=== PATIENT | male | born 1960 | race Caucasian/White ===

== ENCOUNTER 2020-04-27 19:15 | Observation (INO) | payer BC, SELFPAY ==
[2020-04-27] VITALS (21 sets, daily range): BP systolic 105–179; BP diastolic 74–91; PULSE 56–70; RESP 16–22; TEMP 37.1; O2SAT 94–99
--- NOTE | ~2020-04-27 | XR_ITS ---
XR chest 2V DATE: 04/27/2020 19:48 INDICATION: Generalized chest pain. Shortness of breath. Cough. Status post CABG. History of stents. TECHNIQUE: PA and lateral views COMPARISON: 10/23/2010 portable AP chest FINDINGS: Status post sternotomy/CABG. Normal heart size. No hilar or mediastinal enlargement. No pulmonary infiltrate or consolidation, pleural effusion or pulmonary vascular congestion or pneumo thorax. Degenerative spurring of the thoracic spine. IMPRESSION: Status post sternotomy; no active cardiopulmonary disease Reviewed, dictated and finalized at location A.
--- NOTE | 2020-04-27 19:19 | ECG_ITS ---
Measurements Intervals [employer] Rate: 64 P: 53 SD: 181 QRS: -9 QRSD: 95 T: 50 QT: 397 QTc: 412 Interpretive Statements SINUS RHYTHM BORDERLINE ST ABNORMALITY- HIGH LATERAL LEADS BASELINE ARTIFACT- I, II, III, AVR, AVL, AVF, V4-V5 BORDERLINE ECG Electronically Signed On 04-28-2020 7:49:54 CDT by Warner Crocker D.O.
[2020-04-27 19:36] LABS: Basophils Percent Auto 0.3 % (0.2-1.2); Eosinophils Absolute Auto 0.2 K/mm3 (0-0.3); Eosinophils Percent Auto 2.6 % (0-4.4); Hematocrit 44.3 % (42.0-52.0); Hemoglobin 14.7 g/dL (14.0-18.0); Immature Granulocyte Absolute 0.05 K/mm3 (0.00-0.031); Immature Granulocyte Percent A 0.6 % (0-0.5); Lymphocytes Absolute Auto 1.81 K/mm3 (0.9-3.2); Lymphocytes Percent Auto 20.4 % (18.3-44.2); Mean Corpuscular HGB Conc 33.2 g/dl (32-36); Mean Corpuscular Hemoglobin 31.3 pg (26-34); Mean Corpuscular Volume 94.3 fl (80-100); Monocytes Absolute Auto 0.7 K/mm3 (0.1-0.6); Monocytes Percent Auto 7.6 % (2.6-8.5); Neutrophils Absolute Auto 6.1 K/mm3 (1.3-6.7); Neutrophils Percent Auto 68.5 % (45.5-73.1); Platelet Count Result 220 k/mm3 (150-375); Red Cell Distribution Width 12.8 % (11.5-14.5); White Blood Count 8.9 K/mm3 (4.5-10.0)
[2020-04-27 19:46] LABS: Anion Gap 8 mmol/L (8-16); Blood Urea Nitrogen 17 mg/dL (9-20); Calcium 8.8 mg/dL (8.4-10.2); Carbon Dioxide 26 mmol/L (22-30); Chloride 104 mmol/L (98-107); Estimated CRCL calculation 103 ml/min; Estimated Glomerular Filt Rate > 60; Glucose 159 mg/dL (75-110); Potassium 4.1 mmol/L (3.4-5.0); Sodium 138 mmol/L (137-145)
[2020-04-27 19:58] LABS: Troponin I 0.026 ng/mL (0.000-0.034)
--- NOTE | 2020-04-27 20:03 | ED.CHESTPAIN ---
HPI - Chest Pain General Chief Complaint: Chest Pain Stated Complaint: Chest Pain Time Seen by Provider: 04/27/20 19:19 History of Present Illness HPI narrative: Patient is a 59-year-old male who presents the ER with chest pain. Patient has a significant coronary history. He had bypass in 2017. He has had multiple stents since then. Was seen cardiology in [facility] but has had his care transferred down to [facility]. He supposed to have a cath on 05/13/2020. Patient reports over the last 5 days he has had increased chest pain with any sort of exertion, radiates to neck. He basically can only walk 10 to 15 feet before he has central chest pressure. He has to sit down for the discomfort to go away. He is also had an issue where he had spontaneous chest pain and middle of the night. He has been started on isosorbide over the last 4 days which has only slightly helped. No diaphoresis/n/v/soa. Related Data Home Medications Medication Instructions Recorded Confirmed alprazolam 0.5 mg PO TID PRN 04/27/20 04/27/20 aspirin 81 mg PO DAILY 04/27/20 04/27/20 atorvastatin 80 mg PO DAILY 04/27/20 04/27/20 isosorbide mononitrate 30 mg PO DAILY 04/27/20 04/27/20 metformin 1,000 mg PO BID 04/27/20 04/27/20 metoprolol tartrate 25 mg PO BID 04/27/20 04/27/20 multivit with min-folic acid 1 PO DAILY 04/27/20 [Adult One Daily Multivitamin] omeprazole 20 mg PO DAILY 04/27/20 04/27/20 rivaroxaban [Xarelto] 2.5 mg PO BID 04/27/20 04/27/20 ticagrelor [Brilinta] 90 mg PO BID 04/27/20 04/27/20 Allergies Allergy/AdvReac Type Severity Reaction Status Date / Time No Known Allergies Allergy Verified 04/27/20 19:37 Review of Systems Review of Systems: All systems reviewed & are unremarkable except as noted in HPI and below Constitutional: Constitutional: Denies fatigue, Denies fever(s) and Denies weakness ENT: Denies nasal congestion and Denies sore throat Cardiovascular: Cardiovascular: Reports chest pain and Reports radiating jaw, neck or arm pain Respiratory: Respiratory: Denies cough, Denies dyspnea and Denies wheezing Gastrointestinal: Gastrointestinal: Denies nausea and Denies vomiting PMFSH Past Medical History Medical History (Updated 04/28/20 @ 07:32 by Venancio Howell MD) Coronary artery disease Diabetes type 2, controlled Hyperlipidemia Hypertension Surgical History Surgical History (Updated 04/27/20 @ 20:08 by Venancio Howell MD) History of percutaneous coronary intervention Hx of CABG Hx of fusion of cervical spine Social History Social History (Updated 04/27/20 @ 20:08 by Venancio Howell MD) Smoking status: Current every day smoker Tobacco type: cigarettes Exam Narrative: Exam Narrative: GENERAL: Well-appearing, obese, and in no acute distress. HEAD: Normocephalic, atraumatic. ENT: Mucous membranes moist. CHEST: Clear to auscultation. No respiratory distress. HEART: Regular rate and rhythm. Normal peripheral pulses. ABDOMEN: Soft, nontender, nondistended. EXTREMITIES: Normal range of motion. 1+ edema. SKIN: Warm, dry, no rash. NEURO: Alert and oriented x3. Course Course Emergency Course: Accepted by Dr. Garner. Awaiting bed. Reevaluation(s) Reevaluation #1: Patient in the ER for 35 hours now. Admit to the hospitalist service for observation as we are still continuing to wait for a bed. I have also touch base with Dr. Tristan with cardiology who will stop in to evaluate the patient. Date: 04/29/20 Time: 06:44 Vital Signs Vital signs: Vital Signs Temperature 98.7 F 04/27/20 19:21 Pulse Rate 62 04/27/20 19:21 Respiratory Rate 22 H 04/27/20 19:21 Blood Pressure 179/88 H 04/27/20 19:21 Pulse Oximetry 98 04/27/20 19:21 Temperature 97.9 F 04/29/20 05:40 Pulse Rate 62 04/29/20 05:41 Respiratory Rate 16 04/29/20 05:40 Blood Pressure 177/85 H 04/29/20 05:40 Pulse Oximetry 96 04/29/20 05:40 MDM - Chest Pain Lab Data Result diagrams:
[2020-04-27 20:08] LABS: INR 1.1; Prothrombin Time 14.3 Seconds (11.1-14.7)
[2020-04-27 20:09] LABS: Partial Thromboplastin Time 27.5 SECONDS (22.3-36.8)
[2020-04-27 23:02] LABS: Troponin I 0.027 ng/mL (0.000-0.034)
[2020-04-28] VITALS (113 sets, daily range): BP systolic 130–187; BP diastolic 67–94; PULSE 53–84; RESP 9–22; O2SAT 93–100
--- NOTE | 2020-04-28 01:12 | PC.NURSE ---
PT STATES TAKES XANAX AT HOME FOR SLEEP AND REQUESTING MED. DR FERMIN NOTIFIED. VRBO RECEIVED. WILL CONTINUE TO MONITOR.
[2020-04-28] MEDS: ALPRAZolam 0.25 MG TABLET 0.5 MG PO (01:18)
--- NOTE | 2020-04-28 01:41 | PC.NURSE ---
CALL RECEIVED FROM [facility]. TRIAGE INFORMATION GIVEN. STATES WILL CALL WHEN BED AVAILABLE
[2020-04-28 02:16] LABS: Troponin I 0.027 ng/mL (0.000-0.034)
--- NOTE | 2020-04-28 07:12 | PC.NURSE ---
rn report from vaibhav delgadillo.
--- NOTE | 2020-04-28 09:50 | PC.NURSE ---
pt has no current needs. asked about his morning medications. rn spoke with erp dr marion, she would like to hold them at this time. PT updated to this request.
--- NOTE | 2020-04-28 11:02 | PC.NURSE ---
RN report given to Patricia
--- NOTE | 2020-04-28 11:23 | PC.NURSE ---
dr conroy gave verbal order for diet tray and po ativan
[2020-04-28] MEDS: LORazepam 0.5 MG TABLET PO ×2 (11:27→19:45)
[2020-04-28 11:37] LABS: Glucose Point of Care 127 (65-105)
--- NOTE | 2020-04-28 20:08 | PC.NURSE ---
admissions at [facility] called about placement. they state no bed will be ready until morning. patient updated and transferred to hospital bed for comfort.
--- NOTE | 2020-04-28 23:19 | PC.NURSE ---
Report received from MAYNOR Gomez.Assumed care of patient at this time.
[2020-04-29] VITALS (35 sets, daily range): BP systolic 113–178; BP diastolic 62–106; PULSE 54–76; RESP 11–22; TEMP 35.7–36.6; O2SAT 92–98; BMI 37.5
--- NOTE | 2020-04-29 04:48 | PC.NURSE ---
Suzie from [facility] calls to get update on patient. Suzie states they are scheduled to have a bed available some time today.
[2020-04-29] MEDS: ATORVASTATIN 40 MG TABLET 80 MG PO (05:41)
[2020-04-29] MEDS: METOPROLOL TARTRATE 25 MG TABLET PO (05:41)
--- NOTE | 2020-04-29 08:27 | PC.NURSE ---
This patient, Marty Manzanares, was admitted to IMU Room 210-01. Patient/family oriented to hospital policies and general routines including ID bracelet, bed and alarms, visiting hours, pain management, procedures, bathroom and other care routines, personal items, smoking policy, room service/diet, and visiting hours. Valuables list has been completed. Information on how to activate the Rapid Response Team has been discussed. Patient/Family are encouraged to report perceived risks to care and to ask questions if they do not understand what they are told or what they should do.
[2020-04-29] MEDS: ACETAMINOPHEN 325 MG TABLET 650 MG PO (09:06)
[2020-04-29 09:20] LABS: Hematocrit 47.8 % (42.0-52.0); Hemoglobin 16.2 g/dL (14.0-18.0); Mean Corpuscular HGB Conc 33.9 g/dl (32-36); Mean Corpuscular Hemoglobin 31.9 pg (26-34); Mean Corpuscular Volume 94.1 fl (80-100); Mean Platelet Volume 9.8 fl (7.4-10.4); Platelet Count Result 209 k/mm3 (150-375); Red Blood Count 5.08 M/mm3 (4.6-6.20); Red Cell Distribution Width 12.8 % (11.5-14.5); White Blood Count 8.4 K/mm3 (4.5-10.0)
[2020-04-29 09:33] LABS: Anion Gap 6 mmol/L (8-16); Blood Urea Nitrogen 15 mg/dL (9-20); Carbon Dioxide 29 mmol/L (22-30); Chloride 101 mmol/L (98-107); Estimated CRCL calculation 100 ml/min; Estimated Glomerular Filt Rate > 60; Glucose 147 mg/dL (75-110); Magnesium 2.1 mg/dL (1.6-2.3); Potassium 4.2 mmol/L (3.4-5.0); Sodium 136 mmol/L (137-145)
--- NOTE | 2020-04-29 10:20 | PM.IMHP ---
H&P: HPI History of Present Illness Date/Time: 04/29/20 10:20 Chief complaint: unstable angina Narrative: Date of admission: 04/27/2020 Date of service: 04/29/2020 Marty Manzanares is a 59 year old male with an extensive history of coronary artery disease s/p CABG in 2017 and at least 3 cardiac stents with recent angioplasty in December 2019, type 2 diabetes mellitus, hypertension, and hyperlipidemia who presented to the emergency department on 04/27/2020 with complaints of worsened chest pain. He began having chest pain on 04/22/2020 that he described as a constant dull ache. his pain started on his right anterior chest and moved to his shoulders and back and then radiated toward his left side. He had associated right arm and jaw pain. He had occasional diaphoresis, nausea, and anxiety associated with his pain. He was at able to work all week because of his pain. He complained of dyspnea on exertion with less and less activity and chest pain which was worsened with any movement. He took 2 nitro with minimal resolution of symptoms. On 04/23, he called his primary computer salesperson retail (Dr. Anand Tena in [place], [place]) to discuss his pain. Dr. Tena reached out to a colleague, Dr. Ham ([facility]) for referral, and the patient was scheduled for an outpatient cardiac catheterization on 05/13/2020. His pain persisted, and on 04/25, he called Dr. Tena again, at which time he was started on isosorbide. He felt that this was helping his pain initially, but then noticed that his pain was becoming more frequent and his breathing was becoming more labored with less activity. Because of this, his son encouraged him to seek care in the emergency department. At this time, the patient continues to complain of dull midsternal chest aching with slight anxiety. Pain is exacerbated when he rotates in bed or gets up. He has been accepted by Dr. Garner for transfer to [place] and is awaiting a bed. He had been waiting in the ED for >36 hours, and therefore was admitted to the hospitalist service for observation and will be seen in consultation by cardiology. Review of Systems Review of Systems: Narrative: A 12 point review of systems was reviewed with pertinent positives and negatives as per HPI. Patient denies orthopnea or PND. He denies palpitations, numbness, tingling, fever, chills, abdominal pain, dysphagia, cough. no visual changes. He does have symptoms of heartburn, and indicates that he only has GERD symptoms when he has had acute cardiac issues. He has a dull, tension type headache that has been relieved with Tylenol. he denies hematuria or dysuria. His last bowel movement was 2 days ago. His appetite has been good. [facility] Past Medical History Medical History (Updated 04/29/20 @ 14:02 by Felicita Medrano PA-C) Coronary artery disease Diabetes type 2, controlled GERD (gastroesophageal reflux disease) Hyperlipidemia Hyperlipidemia associated with type 2 diabetes mellitus Hypertension Hypertension associated with diabetes Surgical History Surgical History History of percutaneous coronary intervention Hx of CABG 2017 Hx of fusion of cervical spine Family History Family History Father Diabetes mellitus Mother Leukemia Grandparent Heart disease Grandparent Heart disease Social History Social History Social History: Mr. Manzanares lives at Home with his and his son. He is independent in his daily living. 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 he does he thinks his , Teresita, as his surrogate decision maker. He would like to be a full code. His primary care provider is Dr. Ventura Limon. Smoking status: Former smoker Tobacco type: pipe Additional smoking assessment comments: Smoked a pipe for <6 months 30 years ago Alcohol intake: current Alcoh
[2020-04-29 11:55] LABS: Glucose Point of Care 186 (65-105)
--- NOTE | 2020-04-29 13:18 | PM.CNCAR ---
Assessment and Plan Assessment and plan (1) Unstable angina: Code(s): I20.0 - Unstable angina Status: Acute Assessment and Plan: awaiting transfer to [facility]. I am going to restart his dual anti-platelet therapy which has been on hold for the past couple of days. Will start him at 81 mg aspirin as well as Brilinta 90 mg p.o. b.i.d.. Continue to hold his Xarelto for possible pending intervention. Continue metoprolol tartrate at 25 mg p.o. b.i.d.. Resume isosorbide mononitrate 30 mg p.o. b.i.d.. Continue statin. Will repeat an EKG today. He also has signs and symptoms of obstructive sleep apnea and I will order nocturnal oxygen study. (2) Coronary artery disease: Qualifiers: Associated angina: with unstable angina Coronary Disease-Associated Artery/Lesion type: bypass graft [place] vs. transplanted heart: [place] heart Qualified Code(s): I25.700 - Atherosclerosis of coronary artery bypass graft(s), unspecified, with unstable angina pectoris Code(s): I25.10 - Atherosclerotic heart disease of [place] coronary artery without angina pectoris Status: Acute Assessment and Plan: As detailed above (3) Hypertension associated with diabetes: Code(s): E11.59 - Type 2 diabetes mellitus with other circulatory complications; I10 - Essential (primary) hypertension Status: Acute Assessment and Plan: I am uncertain as to why he is not on an Eduard or an Arb. Will start him on some losartan 25 mg p.o. daily (4) Hyperlipidemia associated with type 2 diabetes mellitus: Code(s): E11.69 - Type 2 diabetes mellitus with other specified complication; E78.5 - Hyperlipidemia, unspecified Status: Acute Assessment and Plan: continue high-dose statin History of Present Illness History of Present Illness Consult date/time: 04/29/20 13:18 Requesting physician: Venancio Howell MD Consult reason: chest pain Reason For Visit: unstable angina Narrative: Date of service 04/29/2020 Reason for consultation: Chest pain, coronary disease History: Patient is a 59-year-old male who has known coronary disease. He had CABG in 2017 as well as several stents placed with most recent PCI December of 2019. He has other risk factors including diabetes, hypertension, hyperlipidemia, obesity. He sees Dr. Tena in [place] as his primary axminster weaver. He was being referred to Dr. Nolasco at [facility]. He had scheduled catheterization planned on May 13, 2020. However due to some worsening chest pain symptoms over the past 5 days she decided to come to [facility] further evaluation and treatment. He had been having worsening exertional chest pain with radiation to his neck and back with doing mild activities such as walking around his yd picking up very light objects. He was also even more recently having chest pain by going to the bathroom and back. He would have some associated shortness of breath. Symptoms would be relieved with rest. 2 days ago however he had more chest pain and seemed to have more labored breathing. He became more concerned to the point that again he came to this hospital for further stabilization. He was accepted upon transfer by Dr. Rios at [facility] but unfortunately no bed is yet available. He has subsequently been admitted to the step-down ICU area and I am now seeing him in consultation. He is not having any active chest pain at this point. His troponins are negative. His EKG shows no acute ST or T-wave abnormalities. He has no shortness of breath at this point, syncope, presyncope, paroxysmal nocturnal dyspnea, orthopnea, edema or palpitations. His chest pain and shortness of breath symptoms have become more frequent as well as occurring at less and less activity and more severe over the past 5 days. Review of Systems Review of Systems: All systems reviewed & are unremarkable except as noted in HPI and below Constitutional: Constitutiona
--- NOTE | 2020-04-29 13:43 | ECG_ITS ---
Measurements Intervals [place] Rate: 66 P: 54 FL: 162 QRS: -4 QRSD: 101 T: 80 QT: 394 QTc: 414 Interpretive Statements SINUS RHYTHM CONSIDER INFERIOR INFARCT, AGE INDETERMINATE NONSPECIFIC ST & T-WAVE ABNORMALITY- HIGH LATERAL LEADS ABNORMAL ECG Electronically Signed On 04-29-2020 15:53:18 CDT by Warner Crocker D.O.
[2020-04-29] MEDS: ASPIRIN 81 MG ENTERIC TABLET PO (14:00)
[2020-04-29] MEDS: ISOSORBIDE MONONITRATE 60 MG TAB.ER.24H PO (14:01)
[2020-04-29] MEDS: ALPRAZolam 0.5 MG TABLET PO ×2 (14:05→17:52)
[2020-04-29 16:26] LABS: Glucose Point of Care 171 (65-105)
--- NOTE | 2020-04-29 17:16 | PM.TDS ---
Transfer Discharge Sum: Prov Provider Date of admission: 04/29/20 06:34 Primary care physician: Ventura Limon MD Admitting clinician: Teresita Grey DO Consults: 04/29/20 06:35 Consult to Physician Routine Comment: CONTACTED BY THE ED Consulting Provider: Eduard Tristan weblogic developer/MD group to consult: [place] Reason for consultation: unstable angina Has provider been notified: Yes DS: Admitting Diagnosis Admitting Diagnosis Admitting Diagnosis: unstable angina DS: Discharge Diagnosis Discharge Diagnosis (1) Unstable angina: Code(s): I20.0 - Unstable angina Status: Acute Assessment and Plan: Chest pain at rest with minimal to no exertion. Xarelto was held for possible intervention to be performed at [place]. Brilinta and aspirin were resumed. Continue isosobide mononitrate and metoprolol (2) Coronary artery disease: Qualifiers: Coronary Disease-Associated Artery/Lesion type: bypass graft [place] vs. transplanted heart: [place] heart Associated angina: with unstable angina Qualified Code(s): I25.700 - Atherosclerosis of coronary artery bypass graft(s), unspecified, with unstable angina pectoris Code(s): I25.10 - Atherosclerotic heart disease of [place] coronary artery without angina pectoris Status: Acute Assessment and Plan: Patient has extensive cardiac history with CABG, multiple cardiac interventions and stents. He is established with Dr. Anand Tena and has been referred to Dr. Ham at [facility] with planned outpatient cath on 05/13. He was seen in consultation by replanter Dr. Tristan while at this facility. He is being transferred to [place], accepting physician is Dr. Rios. Medical management as noted above. (3) Diabetes type 2, controlled: Qualifiers: Diabetes mellitus half-way insulin use: without half-way use Diabetes mellitus complication status: without complication Qualified Code(s): E11.9 - Type 2 diabetes mellitus without complications Code(s): E11.9 - Type 2 diabetes mellitus without complications Status: Acute Assessment and Plan: Blood sugars reviewed and were generally well controlled. Started on diabetic carb consistent diet, Accu-Cheks ACHS, hypoglycemic protocol, and moderate dose SSI. Metformin was held. (4) Hypertension: Qualifiers: Hypertension type: essential hypertension Qualified Code(s): I10 - Essential (primary) hypertension Code(s): I10 - Essential (primary) hypertension Status: Acute Assessment and Plan: Blood pressure evaluated and elevated in 160-170s systolic. Metoprolol was resumed. Losartan was initated per cardiology recommendations. Monitor BP closely. (5) Hyperlipidemia: Qualifiers: Hyperlipidemia type: unspecified Qualified Code(s): E78.5 - Hyperlipidemia, unspecified Code(s): E78.5 - Hyperlipidemia, unspecified Status: Acute Assessment and Plan: Continue atorvastatin. Transfer Discharge Sum: Med Medications Active and Home Medications: Home Medications alprazolam 0.5 mg PO TID PRN 04/27/20 [History Confirmed 04/27/20] aspirin 81 mg PO DAILY 04/27/20 [History Confirmed 04/27/20] atorvastatin 80 mg PO DAILY 04/27/20 [History Confirmed 04/27/20] isosorbide mononitrate 30 mg PO BID 04/27/20 [History Confirmed 04/29/20] metformin 1,000 mg PO BID 04/27/20 [History Confirmed 04/27/20] metoprolol tartrate 25 mg PO BID 04/27/20 [History Confirmed 04/27/20] multivit with min-folic acid [Adult One Daily Multivitamin] 0.4 mg PO DAILY 04/27/20 [History Confirmed 04/29/20] omeprazole 20 mg PO DAILY 04/27/20 [History Confirmed 04/27/20] rivaroxaban [Xarelto] 2.5 mg PO BID 04/27/20 [History Confirmed 04/27/20] ticagrelor [Brilinta] 90 mg PO BID 04/27/20 [History Confirmed 04/27/20] Active Medications Acetaminophen (Tylenol Tablet) 650 mg PO Q4H PRN PRN Reason: Mild Pain (1-3) or Fever Last Admin:
== END 2020-04-29 17:55 | disposition short-term general hospital (02) ==
LOC: ANHED 04-29 06:44 → ANHIMU 04-29 07:32
PROVIDERS: Emergency Medicine; Admitting Provider Internal Medicine; Emergency Provider Emergency Medicine; PCP Family Medicine; Visit Provider Physician Assistant
DX: I25.110 Atherosclerotic heart disease of native coronary artery with unstable angina pectoris (principal); I10 Essential (primary) hypertension; E78.5 Hyperlipidemia, unspecified; E11.59 Type 2 diabetes mellitus with other circulatory complications; E11.69 Type 2 diabetes mellitus with other specified complication; K21.9 Gastro-esophageal reflux disease without esophagitis; Z79.01 Long term (current) use of anticoagulants; Z79.84 Long term (current) use of oral hypoglycemic drugs; Z79.82 Long term (current) use of aspirin; Z98.1 Arthrodesis status; Z95.5 Presence of coronary angioplasty implant and graft; Z95.1 Presence of aortocoronary bypass graft; F17.210 Nicotine dependence, cigarettes, uncomplicated; E66.9 Obesity, unspecified; Z68.37 Body mass index [BMI] 37.0-37.9, adult
CPT/HCPCS: 36415; 71046; 80048; 83735; 84484; 85025; 85027; 85610; 85730; 93005; 99285; A9270; G0378

== ENCOUNTER 2020-05-27 16:20 | Outpatient (CLI) | payer BC, SELFPAY ==
[2020-05-29 14:30] LABS: SARS-CoV-2 RNA PCR Negative
== END 2020-05-27 16:21 | disposition home or self-care (01) ==
LOC: CHSLAB 16:22
PROVIDERS: PCP Family Medicine; Visit Provider Family Medicine
DX: R53.83 Other fatigue (principal); Z20.828 Contact with and (suspected) exposure to other viral communicable diseases
CPT/HCPCS: 87635; C9803; U0003

== ENCOUNTER 2020-08-06 11:12 | Outpatient (CLI) | payer BC, SELFPAY ==
[2020-08-06 11:24] LABS: Basophils Absolute Auto 0.04 K/mm3 (0.00-0.10); Basophils Percent Auto 0.5 % (0.0-1.0); Eosinophils Percent Auto 2.3 % (1.0-6.0); Hematocrit 46.5 % (40.0-54.0); Hemoglobin 15.1 g/dL (14.0-18.0); Immature Granulocyte Absolute 0.06 K/mm3 (0.00-0.00); Immature Granulocyte Percent A 0.7 % (0.0-0.0); Lymphocytes Absolute Auto 1.66 K/mm3 (1.10-4.50); Lymphocytes Percent Auto 18.7 % (18.0-42.0); Mean Corpuscular HGB Conc 32.5 g/dL (32.0-36.0); Mean Corpuscular Hemoglobin 31.3 pg (27.0-31.0); Mean Corpuscular Volume 96.3 fL (78.0-102.0); Mean Platelet Volume 9.9 fl (8.7-11.0); Monocytes Absolute Auto 0.63 K/mm3 (0.10-0.90); Monocytes Percent Auto 7.1 % (2.0-11.0); Neutrophils Absolute Auto 6.3 K/mm3 (1.7-7.2); Neutrophils Percent Auto 70.7 % (50.0-70.0); Platelet Count Result 235 K/mm3 (150-420); Red Blood Count 4.83 M/mm3 (4.70-6.10); Red Cell Distribution Width 12.9 % (11.6-14.4); White Blood Count 8.9 K/mm3 (4.8-10.8)
[2020-08-06 11:55] LABS: Anion Gap 9 mmol/L (8-16); Blood Urea Nitrogen 19 mg/dL (7-18); Calcium 9.6 mg/dL (8.5-10.1); Carbon Dioxide 30 mmol/L (21-32); Chloride 103 mmol/L (98-108); Estimated Glomerular Filt Rate 59; Glucose 117 mg/dL (70-99); Osmolality Calculated 297 mOsm/kg (285-295); Potassium 4.7 mmol/L (3.5-5.1); Sodium 142 mmol/L (136-145)
== END 2020-08-06 11:13 | disposition home or self-care (01) ==
LOC: CHSLAB 11:14
PROVIDERS: PCP Family Medicine
DX: I21.4 Non-ST elevation (NSTEMI) myocardial infarction (principal)
CPT/HCPCS: 36415; 80048; 85025